=== PATIENT | male | born 1965 | race Caucasian/White ===

== ENCOUNTER 2019-09-04 09:35 | Emergency (ER) | payer SELFPAY ==
[~2019-09-04] VITALS: Ht 190.5 cm; Wt 72.6 kg
[2019-09-04] MEDS ORDERED: KETOROLAC TROMETHAMINE 30 MG/ML VIAL IV STA (11:53)
[2019-09-04] MEDS ORDERED: KETOROLAC TROMETHAMINE 30 MG/ML VIAL ONE (11:54)
--- NOTE | 2019-09-04 12:54 | Diagnostic Imaging Report ---
EXAMINATION: CXR 2 VIEW - HOPD INDICATION: Chest pain COMPARISON: None FINDINGS: LINES/TUBES:None LUNGS:The lungs are mildly hyperinflated. No focal consolidation or pulmonary edema. PLEURA:No pleural effusion or pneumothorax. MEDIASTINUM:The cardiomediastinal silhouette appears normal in size and shape. Atherosclerotic calcifications of the thoracic aorta. BONES/SOFT TISSUES:No acute osseous injury. Old healed left anterior rib fractures. ABDOMEN:No free air under the diaphragm. IMPRESSION: Hyperinflated lungs. No focal pneumonia or pulmonary edema. Signed by: Roman Weaver MD on 09/04/2019 12:50 PM
[2019-09-04] MEDS ORDERED: POTASSIUM CHLORIDE 20 MEQ TAB CR PO ONE ×3 (13:00→14:51)
[2019-09-04] MEDS ORDERED: MAGNESIUM SULFATE 2GM/50ML 50 ML IV ONE ×2 (13:00→13:08)
--- NOTE | 2019-09-04 13:01 | Diagnostic Imaging Report ---
EXAMINATION: SHOULDER 2+VW RT - HOPD INDICATION: Shoulder pain COMPARISON: None FINDINGS: No acute fracture or dislocation. Alignment appears anatomic. There are severe degenerative changes of the right glenohumeral joint with [id number] contact, subchondral sclerosis, and osteophyte formation. The visualized portions of the right lung are clear. IMPRESSION: No acute osseous injury. Severe right glenohumeral joint degenerative changes. Signed by: Roman Weaver MD on 09/04/2019 12:58 PM
[2019-09-04] MEDS ORDERED: POTASSIUM CHLO10 ME1 PO (13:11)
[2019-09-04] MEDS ORDERED: NAPROSYN500 MG PO (13:11)
[2019-09-04] MEDS ORDERED: VENTOLIN HFA18 GM PO (13:11)
[2019-09-04 14:21] LABS: ALANINE AMINOTRANSFERASE 53 IU/L (0-55); ALBUMIN 3.3 g/dL (3.5-5.0); ALBUMIN/GLOBULIN RATIO 0.8 (0.8-2.0); ALKALINE PHOSPHATASE 113 IU/L (40-150); ANION GAP 17.7 mmol/L (8-16); BLOOD UREA NITROGEN 6 mg/dL (7-26); BUN/CREATININE RATIO 9 (6-25); CALCIUM 8.7 mg/dL (8.4-10.2); CARBON DIOXIDE 24 mmol/L (22-29); CHLORIDE 101 mmol/L (98-107); CREATININE, SERUM 0.69 mg/dL (0.72-1.25); EST GLOMERULAR FILTRATION RATE > 60 ML/MIN (60-); GLUCOSE 81 mg/dL (74-118); SODIUM 140 mmol/L (136-145)
[2019-09-04 14:31] LABS: POTASSIUM 2.7 mmol/L (3.5-5.1)
[2019-09-04] MEDS ORDERED: POTASSIUM CHLORIDE 10MEQ/100ML 100 ML IV ONE ×2 (14:45)
[2019-09-04] MEDS ORDERED: SODIUM CHLORIDE 0.9% 1000ML 1,000 ML IV SCH (14:45)
[2019-09-04] MEDS ORDERED: POTASSIUM CHLORIDE 10MEQ/100ML 100 ML ONE (15:48)
[2019-09-04 17:49] VITALS: BP 156/94
== END 2019-09-04 17:47 | disposition home or self-care (01) ==
LOC: FSED 09:35
DX: M79.10 Myalgia, unspecified site (principal); E87.6 Hypokalemia; J44.9 Chronic obstructive pulmonary disease, unspecified; M25.511 Pain in right shoulder; F17.200 Nicotine dependence, unspecified, uncomplicated
CPT/HCPCS: 36415; 71046; 73030; 80048; 80053; 80076; 80307; 81003; 82553; 83690; 84484; 85025; 93005; 96374; 99284; J1885; J3475; J3480; J7030